=== PATIENT | female | born 1990 | race Caucasian/White ===

== ENCOUNTER 2017-01-29 13:28 | Emergency (ER) | payer SELFPAY ==
[~2017-01-29] VITALS: Ht 157.5 cm; Wt 58.0 kg
[~2017-01-29 13:28] MED LIST: ACIPHEX20 MG OR; LORTAB 5 OR; NO HOME MEDS; TYLENOL 500MG TAB PO; ULTRAM50 M1 PO; ZOFRAN ODT4 MG OR; ZOFRAN ODT8 MG SL
[2017-01-29 14:21] LABS: HEMATOCRIT 38.5 % (37.0-47.0); HEMOGLOBIN 13.4 g/dl (12.0-16.0); IMMATURE GRANULOCYTES 0.2 % (0.0-1.0); MEAN CELL VOLUME 85.6 fL CALC (80.0-100.0); MEAN CORPUSCULAR HGB 29.8 pG CALC (26.0-32.0); MEAN CORPUSCULAR HGB CONC 34.8 g/L CALC (32.0-36.0); NEUT# 5.94 thou/uL (2.00-7.15); RED BLOOD COUNT 4.5 mill/uL (4.20-5.60); RED CELL DISTRI WIDTH 11.9 % (11.5-15.5)
[2017-01-29 14:22] LABS: URINE BILIRUBIN - DIPSTICK NEGATIVE (NEGATIVE); URINE BLOOD DIPSTICK NEGATIVE (NEGATIVE); URINE CLARITY CLEAR; URINE COLOR YELLOW; URINE GLUCOSE - DIPSTICK NEGATIVE (NEGATIVE); URINE KETONE 15 mg/dL (NEGATIVE); URINE LEUK ESTERASE NEGATIVE (NEGATIVE); URINE NITRITE - DIPSTICK NEGATIVE (Negative); URINE PROTEIN - DIPSTICK NEGATIVE (NEG-TRACE); URINE SPECIFIC GRAVITY >=1.030; URINE UROBILINOGEN - DIPSTICK 0.2 E.U./dL (0.2)
[2017-01-29 14:30] LABS: ALBUMIN 4.3 g/dL (3.2-5.0); ALKALINE PHOSPHATASE 82 u/l (38-126); ANION GAP 15 (6-22 (CALC)); BILIRUBIN, TOTAL 0.6 mg/dL (0.0-1.4); BUN 11 mg/dL (7-17); BUN/CREATININE RATIO 19 (12-20 (CALC)); CALCIUM 9.2 mg/dL (8.4-10.2); CARBON DIOXIDE 24 mmol/l (22-30); CHLORIDE 104 mmol/l (95-108); CREATININE 0.6 mg/dL (0.5-1.0); GFR > 60 ML/MIN (>=60 (CALC)); GFR FOR AFR.AMER. > 60 ML/MIN (>=60 (CALC)); GLUCOSE 85 mg/dL (65-105); LIPASE 45 u/l (23-300); POTASSIUM 3.7 mmol/l (3.5-5.1); SGOT/AST 20 u/l (14-36); SGPT/ALT 27 u/l (9-52); SODIUM 139 mmol/l (137-146); TOTAL PROTEIN 7.5 g/dL (6.3-8.2)
[2017-01-29] MEDS ORDERED: NEXIUM40 M1 PO (17:34)
[2017-01-29] MEDS ORDERED: LORTAB 5-325 MG1 TAB PO (17:34)
[2017-01-29 17:47] VITALS: BP 121/58
== END 2017-01-29 17:43 | disposition home or self-care (01) | DRG 392 ==
LOC: ED 13:28
PROVIDERS: Emergency Medicine
DX: R10.12 Left upper quadrant pain (principal); F17.210 Nicotine dependence, cigarettes, uncomplicated; R11.0 Nausea

== ENCOUNTER 2017-03-20 07:55 | Emergency (ER) | payer SELFPAY ==
[~2017-03-20] VITALS: Ht 157.5 cm; Wt 56.8 kg
[~2017-03-20 07:55] MED LIST changes: +LORTAB 5-325 MG1 TAB PO; +NEXIUM40 M1 PO
[2017-03-20 08:59] LABS: INFLUENZA A NONE DETECTED (NONE DETECT); INFLUENZA B NONE DETECTED (NONE DETECT)
[2017-03-20] MEDS ORDERED: ROBITUSSIN200 MG/10 PO (09:08)
[2017-03-20 09:40] VITALS: BP 108/60
== END 2017-03-20 09:50 | disposition home or self-care (01) | DRG 951 ==
LOC: ED 07:55
PROVIDERS: Emergency Medicine
DX: F17.210 Nicotine dependence, cigarettes, uncomplicated (principal); K21.9 Gastro-esophageal reflux disease without esophagitis; B34.9 Viral infection, unspecified

== ENCOUNTER 2021-10-17 02:08 | Emergency (ER) | payer SELFPAY ==
[~2021-10-17] VITALS: Ht 157.5 cm; Wt 50.0 kg
[~2021-10-17 02:08] MED LIST changes: +ROBITUSSIN200 MG/10 PO
[2021-10-17] MEDS ORDERED: MEDICAL MARIJUANA (02:49)
[2021-10-17 03:20] LABS: MEAN CORPUSCULAR HGB 30.8 pG CALC (26.0-32.0); MEAN CORPUSCULAR HGB CONC 34.2 g/dL CAL (32.0-36.0); NEUT# 4.35 thou/uL (2.00-7.15); RED BLOOD COUNT 4.32 mill/uL (4.20-5.60); RED CELL DISTRI WIDTH 11.8 % (11.5-15.5)
[2021-10-17 03:23] LABS: URINE BILIRUBIN - DIPSTICK NEGATIVE (NEGATIVE); URINE BLOOD DIPSTICK LARGE (NEGATIVE); URINE COLOR YELLOW; URINE GLUCOSE - DIPSTICK NEGATIVE (NEGATIVE); URINE KETONE NEGATIVE (NEGATIVE); URINE LEUK ESTERASE NEGATIVE (NEGATIVE); URINE PROTEIN - DIPSTICK NEGATIVE (NEG-TRACE); URINE SPECIFIC GRAVITY 1.015
[2021-10-17 03:26] LABS: HEMATOCRIT 38.9 % (37.0-47.0); HEMOGLOBIN 13.3 g/dl (12.0-16.0)
[2021-10-17 03:26] LABS: URINE NITRITE - DIPSTICK NEGATIVE (Negative)
[2021-10-17 03:32] LABS: URINE MUCUS FEW hpf (NONE-FEW); URINE RBC 50-100 RBC/hpf (0-5); URINE SQUAMOUS EPITHELIAL CELL FEW EPI/hpf (0-FEW)
[2021-10-17 03:36] LABS: ALBUMIN 3.8 g/dL (3.2-5.0); ALKALINE PHOSPHATASE 68 u/l (38-126); AMYLASE 51 u/l (30-110); ANION GAP 10 (6-22 (CALC)); BILIRUBIN, TOTAL 0.6 mg/dL (0.0-1.4); BUN 9 mg/dL (7-17); BUN/CREATININE RATIO 17 (12-20 (CALC)); CARBON DIOXIDE 26 mmol/l (22-30); CHLORIDE 106 mmol/l (95-108); CREATININE 0.5 mg/dL (0.5-1.0); GFR > 60 ML/MIN (>=60 (CALC)); GFR FOR AFR.AMER. > 60 ML/MIN (>=60 (CALC)); LIPASE 60 u/l (23-300); SGOT/AST 25 u/l (14-36); SODIUM 138 mmol/l (137-146); TOTAL PROTEIN 6.8 g/dL (6.3-8.2)
[2021-10-17] MEDS ORDERED: TORADOL PO (06:15)
[2021-10-17 06:17] VITALS: BP 107/58
== END 2021-10-17 06:35 | disposition home or self-care (01) | DRG 392 ==
LOC: ED 02:08
PROVIDERS: Family Medicine
DX: R10.2 Pelvic and perineal pain (principal); F17.210 Nicotine dependence, cigarettes, uncomplicated
CPT/HCPCS: Q9967

== ENCOUNTER 2022-09-22 10:42 | Emergency (ER) | payer SELFPAY ==
[~2022-09-22] VITALS: Ht 157.5 cm; Wt 54.5 kg
[~2022-09-22 10:42] MED LIST changes: +MEDICAL MARIJUANA; +TORADOL PO
[2022-09-22] MEDS ORDERED: SUBOXONE1 MI1 SL (10:55)
[2022-09-22 12:25] VITALS: BP 127/81
[2022-09-22] MEDS ORDERED: CEPHALEXIN500 M1 PO (12:27)
== END 2022-09-22 12:30 | disposition home or self-care (01) | DRG 605 ==
LOC: ED 10:42
DX: S61.411A Laceration without foreign body of right hand, initial encounter (principal); W45.8XXA Other foreign body or object entering through skin, initial encounter

== ENCOUNTER 2022-10-01 13:04 | Emergency (ER) | payer SELFPAY ==
[~2022-10-01] VITALS: Ht 157.5 cm; Wt 65.0 kg
[~2022-10-01 13:04] MED LIST changes: +CEPHALEXIN500 M1 PO; +SUBOXONE1 MI1 SL
[2022-10-01 14:05] VITALS: BP 121/78
== END 2022-10-01 14:49 | disposition home or self-care (01) | DRG 951 ==
LOC: ED 13:04
DX: Z48.02 Encounter for removal of sutures (principal)

== ENCOUNTER 2022-12-21 13:27 | Emergency (ER) | payer SELFPAY ==
[~2022-12-21] VITALS: Ht 157.5 cm; Wt 53.0 kg
[2022-12-21] MEDS ORDERED: NAPROXEN500 MG PO (15:09)
[2022-12-21 15:34] VITALS: BP 100/55
== END 2022-12-21 15:42 | disposition home or self-care (01) | DRG 563 ==
LOC: ED 13:27
PROC: 2W3QX1Z Immobilization of Right Lower Leg using Splint (ICD-10-PCS; principal; 2022-12-21)
DX: S93.401A Sprain of unspecified ligament of right ankle, initial encounter (principal); W18.30XA Fall on same level, unspecified, initial encounter; R55 Syncope and collapse

== ENCOUNTER 2023-05-10 19:00 | Emergency (ER) | payer BC ==
[~2023-05-10] VITALS: Ht 157.5 cm; Wt 58.0 kg
[2023-05-10] VITALS (17 sets, daily range): BP systolic 103–130; BP diastolic 55–80
[~2023-05-10 19:00] MED LIST changes: +NAPROXEN500 MG PO
[2023-05-10 20:15] LABS: BASO% 0.2 % (0-3); HEMATOCRIT 41.8 % (37.0-47.0); IMMATURE GRANULOCYTES 0.1 % (0.0-5.0); LYMPH% 4.9 % (15-41); MEAN CELL VOLUME 90.7 fL CALC (80.0-100.0); MEAN CORPUSCULAR HGB 30.4 pG CALC (26.0-32.0); MEAN CORPUSCULAR HGB CONC 33.5 g/dL CAL (32.0-36.0); MONO% 7.3 % (2-13); NEUT# 10.68 thou/uL (2.00-7.15); NEUT% 87.5 % (42-76); RED BLOOD COUNT 4.61 mill/uL (4.20-5.60); RED CELL DISTRI WIDTH 11.7 % (11.5-15.5)
[2023-05-10 20:24] LABS: ALBUMIN 4.4 g/dL (3.2-5.0); ALKALINE PHOSPHATASE 76 u/l (38-126); ANION GAP 13 (6-22 (CALC)); BILIRUBIN, TOTAL 0.6 mg/dL (0.02-1.3); BUN 6 mg/dL (7-17); BUN/CREATININE RATIO 9 (12-20 (CALC)); CARBON DIOXIDE 22 mmol/l (22-30); CHLORIDE 102 mmol/l (95-108); CREATININE 0.7 mg/dL (0.5-1.0); GFR FOR AFR.AMER. > 60 ML/MIN (>=60 (CALC)); GFR OTHER RACES > 60 ML/MIN (>=60 (CALC)); POTASSIUM 3.7 mmol/l (3.5-5.1); SGOT/AST 25 u/l (14-36); SODIUM 133 mmol/l (137-146); TOTAL PROTEIN 7.5 g/dL (6.3-8.2)
[2023-05-10 20:28] LABS: HCG SERUM/URINE (NEG/POS) NEGATIVE (NEGATIVE)
[2023-05-10 22:38] LABS: URINE BILIRUBIN - DIPSTICK NEGATIVE (NEGATIVE); URINE BLOOD DIPSTICK LARGE (NEGATIVE); URINE COLOR YELLOW; URINE GLUCOSE - DIPSTICK NEGATIVE (NEGATIVE); URINE KETONE NEGATIVE (NEGATIVE); URINE PROTEIN - DIPSTICK 100 mg/dL (NEG-TRACE); URINE SPECIFIC GRAVITY 1.025; URINE UROBILINOGEN - DIPSTICK 0.2 E.U./dL (0.2)
[2023-05-10 22:45] LABS: URINE LEUK ESTERASE MODERATE (NEGATIVE); URINE NITRITE - DIPSTICK POSITIVE (Negative)
[2023-05-10 22:46] LABS: URINE RBC TNTC RBC/hpf (0-5)
[2023-05-10 22:47] LABS: URINE SQUAMOUS EPITHELIAL CELL FEW EPI/hpf (0-FEW)
[2023-05-10] MEDS ORDERED: BACTRIM DS1 TAB PO (22:53)
== END 2023-05-10 23:43 | disposition home or self-care (01) | DRG 690 ==
LOC: ED 19:00
PROVIDERS: Family Medicine
DX: N39.0 Urinary tract infection, site not specified (principal); F17.200 Nicotine dependence, unspecified, uncomplicated; B96.20 Unspecified Escherichia coli [E. coli] as the cause of diseases classified elsewhere; Z20.822 Contact with and (suspected) exposure to COVID-19